=== PATIENT | female | born 1945 | race Native Hawaiian/Other Pacific Islander ===

== ENCOUNTER 2016-05-19 15:39 | Outpatient (CLI) | payer OTHER ==
[~2016-05-19 15:39] MED LIST: ALORA0.05 MG PO; AMIO200T14 PO; FLECAINIDE50 MG PO; GABA300C2 PO; LORA0.5T17 PO; LORAZEPAM0.5 MG PO; METO25TA4 PO; METOPROLOL25 M1 PO; PRAVACHOL20 MG PO; PRIMIDONE250 MG PO; STRATTERA25 MG PO; TRAMADOL HCL100 M1 PO; XARELTO20 MG PO
[2016-05-19 16:16] LABS: PLATELET COUNT 219 K/uL (152-353)
[2016-05-19 16:17] LABS: POTASSIUM 4.1 mmol/L (3.6-5.2)
== END 2016-05-19 23:06 | disposition home or self-care (01) ==
LOC: LABW 15:39
PROVIDERS: Nurse Practitioner
DX: F41.8 Other specified anxiety disorders (principal); I48.1 Persistent atrial fibrillation; K21.9 Gastro-esophageal reflux disease without esophagitis; R53.83 Other fatigue; I10 Essential (primary) hypertension; Z79.899 Other long term (current) drug therapy; N95.8 Other specified menopausal and perimenopausal disorders; D86.0 Sarcoidosis of lung; M79.7 Fibromyalgia; E55.9 Vitamin D deficiency, unspecified
CPT/HCPCS: 36415; 80053; 80061; 82248; 82306; 82607; 83036; 84443; 85027

== ENCOUNTER 2017-03-12 10:18 | Outpatient (CLI) | payer OTHER | END 2017-03-12 19:09 | disposition home or self-care (01) | LOC: LABW 10:18 | DX: G25.0 Essential tremor (principal); D86.0 Sarcoidosis of lung; R26.89 Other abnormalities of gait and mobility | CPT/HCPCS: 36415; 82164; 82607; 82746; 84443; 85651; 86039; 86140 ==

== ENCOUNTER 2017-04-15 08:59 | Outpatient (CLI) | payer OTHER ==
[2017-04-15 09:54] LABS: PLATELET COUNT 251 K/uL (152-353)
[2017-04-15 10:09] LABS: POTASSIUM 4.1 mmol/L (3.6-5.2)
== END 2017-04-15 19:37 | disposition home or self-care (01) ==
LOC: LABW 08:59
PROVIDERS: Internal Medicine Cardiovascular Disease
DX: I48.91 Unspecified atrial fibrillation (principal); Z09 Encounter for follow-up examination after completed treatment for conditions other than malignant neoplasm
CPT/HCPCS: 36415; 80048; 80076; 84436; 84443; 85027

== ENCOUNTER 2017-05-13 10:54 | Outpatient (CLI) | payer OTHER | END 2017-05-13 19:22 | disposition home or self-care (01) | LOC: LABW 10:54 | DX: R50.9 Fever, unspecified (principal) | CPT/HCPCS: 87804 ==

== ENCOUNTER 2017-05-22 10:21 | Outpatient (CLI) | payer OTHER | END 2017-05-22 19:39 | disposition home or self-care (01) | LOC: MRI 10:21 | DX: R26.89 Other abnormalities of gait and mobility (principal); R29.6 Repeated falls ==

== ENCOUNTER 2017-08-14 07:45 | Emergency (ER) | payer OTHER ==
[~2017-08-14] VITALS: Ht 165.1 cm; Wt 83.9 kg
[2017-08-14 07:57] VITALS: TEMP 97.6
[2017-08-14 09:27] VITALS: BP 128/62
== END 2017-08-14 09:30 | disposition home or self-care (01) ==
LOC: ED 07:45
DX: S01.21XA Laceration without foreign body of nose, initial encounter (principal); R51 Headache; W01.0XXA Fall on same level from slipping, tripping and stumbling without subsequent striking against object, initial encounter; Y92.098 Other place in other non-institutional residence as the place of occurrence of the external cause
CPT/HCPCS: 90471; 90715; 99283

== ENCOUNTER 2017-11-20 10:50 | Outpatient (CLI) | payer OTHER | END 2017-11-20 19:39 | disposition home or self-care (01) | LOC: MAMMO 10:50 | DX: Z12.31 Encounter for screening mammogram for malignant neoplasm of breast (principal) ==

== ENCOUNTER 2019-06-14 08:37 | Outpatient (CLI) | payer OTHER | END 2019-06-14 19:14 | disposition home or self-care (01) | LOC: MAMMO 08:37 | DX: Z12.31 Encounter for screening mammogram for malignant neoplasm of breast (principal) ==

== ENCOUNTER 2019-12-22 09:30 | Inpatient (IN) | payer OTHER ==
[~2019-12-22] VITALS: Ht 162.6 cm; Wt 86.4 kg
[2019-12-22 16:00] VITALS: BP 107/41; TEMP 97.4
[2019-12-22 17:53] LABS: PLATELET COUNT 271 K/uL (152-353)
[2019-12-22 17:57] VITALS: BP 122/50; TEMP 98.5; Ht 162.6 cm; Wt 86.4 kg
[2019-12-22] MEDS ORDERED: TRAMADOL HYDROC50 MG PO (18:47)
[2019-12-22] MEDS ORDERED: CLON0.5T36 PO (18:48)
[2019-12-22] MEDS ORDERED: PROP40TA53 PO (18:48)
[2019-12-22] MEDS ORDERED: PANTOPRAZOLE 40MG TA PO (18:49)
[2019-12-22] MEDS ORDERED: FLUOXETINE40 MG PO (18:50)
[2019-12-22] MEDS ORDERED: DIOVAN HCT PO (19:28)
[2019-12-22] MEDS ORDERED: DONE5TAB PO (19:29)
[2019-12-22] MEDS ORDERED: ASPIRIN ADULT325 MG PO (19:30)
[2019-12-22 19:44] VITALS: BP 137/57; TEMP 98.4
[2019-12-23] VITALS: BP 104/34; TEMP 98.6
[2019-12-23 04:00] VITALS: BP 112/37; TEMP 99.8
[2019-12-23 05:28] LABS: PLATELET COUNT 268 K/uL (152-353)
[2019-12-23 05:52] LABS: POTASSIUM 4.1 mmol/L (3.6-5.2)
[2019-12-23 08:00] VITALS: BP 116/47; TEMP 98.6
[2019-12-23 12:00] VITALS: BP 112/44; TEMP 98.4
[2019-12-23 16:00] VITALS: BP 153/54; TEMP 99.1
[2019-12-23 20:00] VITALS: BP 148/56; TEMP 98.1
[2019-12-24 00:22] VITALS: BP 126/50; TEMP 99.1
[2019-12-24 04:00] VITALS: BP 130/50; TEMP 98.5
[2019-12-24 06:17] LABS: PLATELET COUNT 274 K/uL (152-353)
[2019-12-24 06:39] LABS: POTASSIUM 3.6 mmol/L (3.6-5.2)
[2019-12-24 08:00] VITALS: BP 139/59; TEMP 98.5
[2019-12-24 12:00] VITALS: BP 153/68; TEMP 98.7
[2019-12-24 16:00] VITALS: BP 140/56; TEMP 98.3
[2019-12-24 20:00] VITALS: BP 147/59; BP 150/66; TEMP 98.5; TEMP 98.8
[2019-12-25] VITALS: BP 140/59; TEMP 98.3
[2019-12-25 04:03] VITALS: BP 126/46; TEMP 98.5
[2019-12-25 04:24] LABS: PLATELET COUNT 257 K/uL (152-353)
[2019-12-25 04:42] LABS: POTASSIUM 3.7 mmol/L (3.6-5.2)
[2019-12-25 08:00] VITALS: BP 140/57; TEMP 98.2
[2019-12-25 12:00] VITALS: BP 124/58; TEMP 98.7
[2019-12-26 00:29] VITALS: BP 137/58; TEMP 98.1
[2019-12-26 04:00] VITALS: BP 150/58; TEMP 98.7
[2019-12-26 05:08] LABS: PLATELET COUNT 263 K/uL (152-353)
[2019-12-26 05:27] LABS: POTASSIUM 3.7 mmol/L (3.6-5.2)
[2019-12-26 08:00] VITALS: BP 150/57; TEMP 98.3
[2019-12-26 11:56] VITALS: BP 157/61; TEMP 98.5
== END 2019-12-26 13:45 | disposition short-term general hospital (02) | DRG 392 ==
LOC: MED/SURG 09:30
PROVIDERS: ADMIT Family Medicine
DX: K57.20 Diverticulitis of large intestine with perforation and abscess without bleeding (principal); E46 Unspecified protein-calorie malnutrition; G25.0 Essential tremor; I10 Essential (primary) hypertension; F01.50 Vascular dementia, unspecified severity, without behavioral disturbance, psychotic disturbance, mood disturbance, and anxiety; Z78.0 Asymptomatic menopausal state; I48.91 Unspecified atrial fibrillation; F41.8 Other specified anxiety disorders
CPT/HCPCS: 36415; 80053; 81000; 82272; 83735; 83880; 84100; 85027; 87015; 87040; 87045; 87324; 87328; 87329; 87449; 87899; 96365; 96366; 96367; 96375; J0744; J1450; J1644; J2060; J2175; J2405; J2543; J2550; J3490; Q9963

== ENCOUNTER 2020-08-21 08:52 | Outpatient (CLI) | payer OTHER ==
[~2020-08-21 08:52] MED LIST changes: +ASPIRIN ADULT325 MG PO; +CLON0.5T36 PO; +DIOVAN HCT PO; +DONE5TAB PO; +FLUOXETINE40 MG PO; +PANTOPRAZOLE 40MG TA PO; +PROP40TA53 PO; +TRAMADOL HYDROC50 MG PO
== END 2020-08-21 19:32 | disposition home or self-care (01) ==
LOC: RESP 08:52
PROVIDERS: ATTEND Nurse Practitioner Family
DX: R60.0 Localized edema (principal); Z12.31 Encounter for screening mammogram for malignant neoplasm of breast

== ENCOUNTER 2020-10-11 13:42 | Outpatient (CLI) | payer OTHER | END 2020-10-11 19:51 | disposition home or self-care (01) | LOC: RAD 13:42 | PROVIDERS: ATTEND Nurse Practitioner Family | DX: M54.5 Low back pain (principal); M25.561 Pain in right knee; M25.562 Pain in left knee ==

== ENCOUNTER 2020-11-01 11:10 | Outpatient (CLI) | payer OTHER | END 2020-11-01 22:06 | disposition home or self-care (01) | LOC: RAD 11:10 | PROVIDERS: ATTEND Nurse Practitioner Family | DX: R06.2 Wheezing (principal) ==

== ENCOUNTER 2020-12-23 07:28 | Emergency (ER) | payer OTHER ==
[~2020-12-23] VITALS: Ht 165.1 cm; Wt 77.1 kg
[2020-12-23 07:29] VITALS: TEMP 97.3
[2020-12-23 08:15] LABS: PLATELET COUNT 298 K/uL (152-353)
[2020-12-23 08:23] LABS: POTASSIUM 4.3 mmol/L (3.6-5.2); SODIUM 126 mmol/L (136-145)
[2020-12-23 08:28] LABS: PARTIAL THROMBOPLASTIN TIME 28.5 SECONDS (24.5-33.6)
[2020-12-23 10:45] VITALS: BP 178/66
== END 2020-12-23 10:45 | disposition still patient (30) ==
LOC: ED 07:28
PROVIDERS: Emergency Medicine
DX: R07.89 Other chest pain (principal); I48.91 Unspecified atrial fibrillation; Z79.01 Long term (current) use of anticoagulants; Z20.822 Contact with and (suspected) exposure to COVID-19
CPT/HCPCS: 80053; 83880; 84484; 85027; 85379; 85610; 85730; 87635; 93005; 96372; 99283; J1885; U0003

== ENCOUNTER 2021-01-05 14:49 | Outpatient (CLI) | payer OTHER | END 2021-01-05 19:04 | disposition home or self-care (01) | LOC: LAB 14:49 | PROVIDERS: ATTEND Nurse Practitioner Family | DX: E87.1 Hypo-osmolality and hyponatremia (principal); N39.0 Urinary tract infection, site not specified | CPT/HCPCS: 81000; 83935; 84300; 87086; 87088 ==

== ENCOUNTER 2021-01-31 08:08 | Outpatient (CLI) | payer OTHER ==
[2021-01-31 08:49] LABS: POTASSIUM 3.9 mmol/L (3.6-5.2)
[2021-01-31 08:51] LABS: PLATELET COUNT 210 K/uL (152-353)
== END 2021-01-31 20:00 | disposition home or self-care (01) ==
LOC: LABW 08:08
PROVIDERS: ATTEND Specialist
DX: R73.09 Other abnormal glucose (principal); Z79.899 Other long term (current) drug therapy
CPT/HCPCS: 36415; 80053; 83036; 83525; 83704; 84681; 85027; 86140

== ENCOUNTER 2021-04-12 09:16 | Emergency (ER) | payer OTHER ==
[~2021-04-12] VITALS: Ht 165.1 cm; Wt 85.7 kg
[2021-04-12 10:28] LABS: PLATELET COUNT 144 K/uL (152-353)
[2021-04-12 11:09] LABS: POTASSIUM 4.1 mmol/L (3.6-5.2)
[2021-04-12 12:00] VITALS: BP 166/49; TEMP 97.4
== END 2021-04-12 12:00 | disposition home or self-care (01) ==
LOC: ED 09:16
PROVIDERS: Emergency Medicine
DX: M25.552 Pain in left hip (principal); M48.061 Spinal stenosis, lumbar region without neurogenic claudication
CPT/HCPCS: 80053; 85027; 96372; 99283; J1885

== ENCOUNTER 2021-04-15 09:41 | Outpatient (CLI) | payer OTHER | END 2021-04-15 19:50 | disposition home or self-care (01) | LOC: US 09:41 | PROVIDERS: ATTEND Specialist | DX: N39.0 Urinary tract infection, site not specified (principal) ==

== ENCOUNTER 2021-05-15 08:44 | Outpatient (CLI) | payer OTHER ==
[2021-05-15 09:07] LABS: POTASSIUM 4.4 mmol/L (3.6-5.2)
== END 2021-05-15 18:54 | disposition home or self-care (01) ==
LOC: LABW 08:44
PROVIDERS: ATTEND Nurse Practitioner Family
DX: E87.1 Hypo-osmolality and hyponatremia (principal); R60.0 Localized edema
CPT/HCPCS: 36415; 80048; 83880